=== PATIENT | female | born 1965 | race Caucasian/White ===

== ENCOUNTER 2016-07-26 15:01 | Observation (INO) | payer BC ==
[~2016-07-26] VITALS: Ht 162.6 cm; Wt 68.0 kg
[2016-07-26] VITALS (7 sets, daily range): BP systolic 97–143; BP diastolic 68–91; PULSE 66–106; RESP 16–17; TEMP 97.9–98.2; O2SAT 98–99
--- NOTE | 2016-07-26 15:28 | PD ---
HPI Chief Complaint: Chest Pain Time Seen by Provider: 15:25 Travel History International Travel<30 days: No Contact w/Intl Traveler<30days: No Traveled to known affect area: No History of Present Illness HPI 51-year-old female with PMH of hiatal hernia presents to the ED for evaluation of chest pain. Onset at 7 AM while the patient was out for a run. Patient describes a centralized tightness of her chest, states that it has not resolved over time. She denies radiation of the pain, palpitations, shortness of breath , nausea or vomiting. She states that she had a cardiac workup 5 or 6 years ago. She endorses [id number] smoking history, quit around 30 years ago. She endorses cardiac in her father at age 47, stroke history in her mother. Patient states that she has run several marathons but states that her 5 months ago and she has not been running regularly since. PFSH Past Medical History Hx Anticoagulant Therapy: Yes (81 ASPIRIN) Cardiovascular Problems: Yes (MURMUR) ?: Not LMP: 07/21/16 Social History Tobacco Use: Yes (quit age 26) Allergies-Medications (Allergen,Severity, Reaction): Coded Allergies: Morphine (Unverified Allergy, Mild, 07/26/16) "VIOLENT VOMITTING" Reported Meds & Prescriptions Reported Meds & Active Scripts Active Reported Lexapro (Escitalopram Oxalate) Unknown Strength Tab Unknown Dose PO DAILY Review of Systems Except as stated in HPI: all other systems reviewed are Neg Physical Exam Narrative GENERAL: Well-nourished, well-developed white female appearing younger than her stated age in no acute distress. SKIN: Focused skin assessment warm/dry. HEAD: Normocephalic. EYES: No scleral icterus. No injection or drainage. NECK: Supple, trachea midline. No JVD or lymphadenopathy. CARDIOVASCULAR: Regular rate and rhythm without murmurs, gallops, or rubs. 2+ DP and radial pulses bilaterally. RESPIRATORY: Breath sounds clear and equal bilaterally. No accessory muscle use. GASTROINTESTINAL: Abdomen soft, non-tender, nondistended. Active bowel sounds. MUSCULOSKELETAL: No cyanosis, or edema. Patient is ambulatory, moves extremities spontaneously. BACK: Nontender without obvious deformity. No CVA tenderness. Data Data Last Documented VS Vital Signs Date Time Temp Pulse Resp B/P Pulse Ox O2 Delivery O2 Flow Rate FiO2 07/26/16 15:38 98 16 98 Room Air 07/26/16 15:03 98.2 143/90 Orders Electrocardiogram (07/26/16 ) Electrocardiogram (07/26/16:23) Ckmb (Isoenzyme) Profile (07/26/16 15:23) Complete Blood Count With Diff (07/26/16:23) Comprehensive Metabolic Panel (07/26/16:) Magnesium (Mg) (07/26/16:) Prothrombin Time / Inr (Pt) (07/26/16:23) Act Partial Throm Time (Ptt) (07/26/16:23) Troponin I (07/26/16) Lipase (07/26/16:) Chest, Single Ap (07/26/16:) Ecg Monitoring (07/26/16:) Bilateral Bp Monitoring (07/26/16:) Iv Access Insert/Monitor (07/26/16:) Oximetry (07/26/16:) Aspirin Chew (Aspirin Chew) (07/26/16 15:30) Sodium Chloride 0.9% Flush (Ns Flush) (07/26/16 15:30) Sodium Chlor 0.9% 1000 Ml Inj (Ns 1000 M (07/26/16 15:30) Urinalysis - C+S If Indicated (07/26/16 16:32) Admit Order (Ed Use Only) (07/26/16 16:35) Labs Laboratory Tests Test 07/26/16 15:30 White Blood Count 13.0 TH/MM3 Red Blood Count 4.87 MIL/MM3 Hemoglobin 14.5 GM/DL Hematocrit 44.1 % Mean Corpuscular Volume 90.4 FL Mean Corpuscular Hemoglobin 29.9 PG Mean Corpuscular Hemoglobin 33.0 % Concent Red Cell Distribution Width 13.8 % Platelet Count 367 TH/MM3 Mean Platelet Volume 7.9 FL Neutrophils (%) (Auto) 78.5 % Lymphocytes (%) (Auto) 14.1 % Monocytes (%) (Auto) 6.5 % Eosinophils (%) (Auto) 0.4 % Basophils (%) (Auto) 0.5 % Neutrophils # (Auto) 10.2 TH/MM3 Lymphocytes # (Auto) 1.8 TH/MM3 Monocytes # (Auto) 0.8 TH/MM3 Eosinophils # (Auto) 0.1 TH/MM3 Basophils # (Auto) 0.1 TH/MM3 CBC Comment DIFF FINAL Differential Comment Prothrombin Time 10.5 SEC Prothromb Time International 1.0 RATIO Ratio Activated Partial 25.8 SEC Thromboplast Time Sodium Level 138 MEQ/L Potassium Level 3.5 MEQ/L Chloride Level 101 MEQ/L Carbon Dioxide Level 25.1 MEQ/L Anion Gap 12 MEQ/L Blood Urea Nitrogen 12 MG/DL Creatinine 0.97 MG/DL Estimat Glomerular Filtration 60 ML/MIN Rate Random Glucose 118 MG/DL Calcium Level 9.5 MG/DL Magnesium Level 2.1 MG/DL Total Bilirubin 0.7 MG/DL Aspartate Amino Transf 18 U/L (AST/SGOT) Alanine Aminotransferase 26 U/L (ALT/SGPT) Alkaline Phosphatase 72 U/L Total Creatine Kinase 65 U/L Troponin I LESS THAN 0.02 NG/ML Total Protein 7.2 GM/DL Albumin 3.9 GM/DL Lipase 287 U/L [facility] Medical Decision Making Medical Screen Exam Complete: Yes Emergency Medical Condition: Yes Differential Diagnosis Atypical chest pain versus angina versus ACS versus GERD versus cholecystitis versus anxiety versus other Narrative Course 51-year-old female with PMH of hiatal hernia presents to the ED for evaluation of chest pain. Onset at 7 AM while out for a run. Described as a centralized tightness of her chest, states that it has not resolved over time. Denies radiation, palpitations, SOB, N/V. Endorses cardiac workup 5 or 6 years ago,10- pack-year smoking history, quit around 30 years ago. She endorses cardiac in her father at age 47, stroke history in her mother. Patient states that she has run several marathons but states that her 5 months ago and she has not been running regularly since. Vitals reviewed. Patient is tachycardic on presentation but this resolves in the exam room. Physical exam reveals a nontoxic-appearing white female in no acute distress. RRR without appreciable M/R/G. Chest CTAB. Abdomen soft and nontender. Equal pulses in the extremities. No lower extremity edema. Patient was administered 325 mg ASA and 1 L NS bolus. CBC: WBC 13.0. Hemoglobin 14.5 CMP: Unremarkable Coags: INR 1.0 Lipase: 287 UA: Cardiac enzymes: Negative 1 EKG rate 93, sinus rhythm. IN interval 134, QRS 89, QTC 370. Normal axis. No ST changes. Reviewed by Dr. Ortega. CXR: No acute cardiopulmonary disease per radiology read. Unsure of the source of leukocytosis, patient states that she's been feeling well before today's symptoms. UA pending. I discussed the results of the workup with the patient. We'll admit to the [facility] for serial cardiac enzymes and EKGs, recommend following the leukocytosis as well. Please see chest pain center notes for disposition. Ailyn Worthy Jul 26, 2016 15:28
[2016-07-26] MEDS ORDERED: SODIUM CHLOR 0.9% 1000 ML INJ 1,000 ML IV ONE (15:30)
[2016-07-26] MEDS ORDERED: ASPIRIN 81 MG CHEW TAB PO ONE (15:30)
[2016-07-26] MEDS ORDERED: SODIUM CHLORIDE 0.9% FLUSH 10 ML FLUSH IVF PRN (15:30)
[2016-07-26] MEDS ORDERED: LEXA5TAB PO (15:41)
[2016-07-26 15:44] LABS: AUTOMATED NEUTROPHIL # 10.2 TH/MM3 (1.8-7.7); BASOPHIL # 0.1 TH/MM3 (0-0.2); BASOPHIL % 0.5 % (0.0-2.0); EOSINOPHIL # 0.1 TH/MM3 (0-0.4); EOSINOPHIL % 0.4 % (0.0-4.0); HEMATOCRIT 44.1 % (35.0-46.0); HEMO FLAGS DIFF FINAL; LYMPH % 14.1 % (9.0-44.0); LYMPHOCYTE # 1.8 TH/MM3 (1.0-4.8); MEAN CELL VOLUME 90.4 FL (80.0-100.0); MEAN CORPUSCULAR HEMOGLOBIN 29.9 PG (27.0-34.0); MONO % 6.5 % (0.0-8.0); NEUT % 78.5 % (16.0-70.0); PLATELET COUNT 367 TH/MM3 (150-450); RED BLOOD COUNT 4.87 MIL/MM3 (4.00-5.30); RED CELL DISTRIBUTION WIDTH 13.8 % (11.6-17.2)
--- NOTE | 2016-07-26 15:46 | RADRPT ---
EXAM DATE/TIME: 07/26/2016 15:39 [facility] COMPARISON: No previous studies available for comparison. INDICATIONS : Chest pain. MEDICAL HISTORY : Hypertension. Hiatal hernia. SURGICAL HISTORY : None. ENCOUNTER: Initial ACUITY: 1 day PAIN SCORE: 5/10 LOCATION: Bilateral chest FINDINGS: A single view of the chest demonstrates the lungs to be symmetrically aerated without evidence of mas s, infiltrate or effusion. The cardiomediastinal contours are unremarkable. Osseous structures are intact. CONCLUSION: No evidence of acute cardiopulmonary disease. Haroon Pope MD on July 26, 2016 at 15:44 Board Certified Radiologist. This report was verified electronically.
[2016-07-26 15:54] LABS: APTT (PATIENT) 25.8 SEC (24.3-30.1); PROTHROMBIN TIME - PATIENT 10.5 SEC (9.8-11.6)
[2016-07-26 16:08] LABS: ANION GAP 12 MEQ/L (5-15); AST (GOT) 18 U/L (15-37); BICARBONATE 25.1 MEQ/L (21.0-32.0); BLOOD UREA NITROGEN 12 MG/DL (7-18); CHLORIDE 101 MEQ/L (98-107); GLOMERULAR FILTRATION RATE 60 ML/MIN (>89); MAGNESIUM 2.1 MG/DL (1.5-2.5); POTASSIUM 3.5 MEQ/L (3.5-5.1); SODIUM (NA) 138 MEQ/L (136-145)
[2016-07-26 16:13] LABS: ALKALINE PHOSPHATASE 72 U/L (45-117); ALT (GPT) 26 U/L (10-53); TOTAL BILIRUBIN ADULT 0.7 MG/DL (0.2-1.0)
[2016-07-26 16:28] LABS: CREATINE KINASE 65 U/L (26-192)
[2016-07-26] MEDS ORDERED: ASPI81CH CHEW (17:05)
[2016-07-26] MEDS ORDERED: LISI10TA PO (17:05)
[2016-07-26] MEDS ORDERED: SODIUM CHLOR 0.9% 1000 ML INJ 1,000 ML IV SCH (17:06)
--- NOTE | 2016-07-26 17:06 | HHI.HP ---
[facility] Primary Care Physician Lisa Coombs MD Chief Complaint Chest pain History of Present Illness This is a 51-year-old female that presents to ED via private vehicle with a complaint of developing a chest discomfort this morning. She states that she is beginning to start the jaw began to prepare for a marathon in [place]. She had ran about 2 miles when she developed goosebumps. She is states that she recalls in the past when she was jogging that when she had goosebumps adamant that she was dehydrated. She then stopped and sat down. About that time she developed a discomfort in the center of her chest. She describes them as "little pains." It will last for couple seconds but with reoccur. It did finally stop reoccurring and she decided to try running a little more. She ran/ walked an additional mile and her friend and picked her up in the car. She went home and was feeling better. And a little later she started having the same "little pains." They also last a few seconds. Should no associated shortness red nausea or diaphoresis. Patient has history of hypertension and was recently placed on lisinopril/HCTZ. She also was told that her cholesterol levels little bit elevated but her doctors going to try diet control. Has had stomach ulcers about 7 years ago and believes she's been having heartburn more over the last couple months. Tums do seem to help with that. Denies recent illness. Denies fevers or chills. Cannot recall ever having a stress test but states she had a 2-D echo and EKG and that it looked okay other than having a murmur. Review of Systems General: Patient denies fevers, chills recent, and recent travel HEENT: Patient denies headache, sore throat, difficulty swallowing. Cardiovascular: Has the chest discomfort as mentioned above. Denies sensation of heart beating rapidly or irregularly. No syncope. Denies diaphoresis. Respiratory: Denies shortness of breath or inspirational chest discomfort. Denies coughing wheezing or hemoptysis. GI: Patient denies nausea, vomiting, diarrhea, abdominal pain, bloody stools. Musculoskeletal: Patient denies joint pain or edema. Denies calf pain or edema. Neurovascular: Patient denies numbness, tingling, weakness in extremities. Denies headache. Endocrine: Denies polyuria and polydipsia. Hematologic: Denies easy bruising. Skin: Denies rash or itching. Past Family Social History Allergies: Coded Allergies: Morphine (Unverified Allergy, Mild, 07/26/16) "VIOLENT VOMITTING" Past Medical History Hypertension, hyperlipidemia, stomach ulcers, hiatal hernia, past history tobacco abuse quitting 25 years ago. GERD. Depression. Denies diabetes and known CAD. Past Surgical History Appendectomy, ganglion cyst removal, endometrial ablation, and breast reduction. Reported Medications Reported Meds & Active Scripts Active Reported Lexapro (Escitalopram Oxalate) Unknown Strength Tab Unknown Dose PO DAILY Active Ordered Medications Current Medications Medications (Trade) Dose Ordered Sig/Desirae Route Start Time Stop Time Status Last Admin (NS Flush) 2 ml UNSCH PRN IVF 07/26/16 15:30 07/26/16 15:35 Family History She states that her father of a myocardial infarction at age 47. Social History Patient quit smoking 25 years ago but prior that she smoked one pack of cigarettes daily for 10 years. She has on average 2 glasses of wine 3-4 times a week. Denies illicit drugs. She is a business owner consulting engineer. Her recently . Physical Exam Vital Signs Vital Signs Date Time Temp Pulse Resp B/P Pulse Ox O2 Delivery O2 Flow Rate FiO2 07/26/16 15:38 98 16 98 Room Air 07/26/16 15:20 92 16 98 Room Air 07/26/16 15:03 98.2 106 16 143/90 99 Physical Exam GENERAL: This is a well-nourished, well-developed patient, in no apparent distress. Patient speaks in clear complete sentences. Patient is pleasant. HEENT: Head is atraumatic and normocephalic. Neck is supple without lymphadenopathy and trachea is midline. No JVD or carotid bruits. CARDIOVASCULAR: Grade 1 systolic murmur left sternal border. Regular rate and rhythm without gallops, or rubs. RESPIRATORY: Clear to auscultation. Breath sounds equal bilaterally. No wheezes , rales, or rhonchi. Chest wall is nontender. No use of accessory muscles. GASTROINTESTINAL: Abdomen is nontender, nondistended. Abdomen soft. No obvious pulsatile mass or bruit. No CVA tenderness. Strong femoral pulses bilaterally. Normal bowel sounds in all quadrants. MUSCULOSKELETAL: Patient is moving upper and lower extremities freely. No calf tenderness or edema, no Homans sign. Strong pulses in upper and lower extremities. NEUROLOGICAL: Patient is alert and oriented. Cranial nerves 2-12 are grossly intact. No focal deficits and speech is clear. SKIN: No rash and turgor is normal. Laboratory Laboratory Tests Test 07/26/16 15:30 White Blood Count 13.0 Red Blood Count 4.87 Hemoglobin 14.5 Hematocrit 44.1 Mean Corpuscular Volume 90.4 Mean Corpuscular Hemoglobin 29.9 Mean Corpuscular Hemoglobin 33.0 Concent Red Cell Distribution Width 13.8 Platelet Count 367 Mean Platelet Volume 7.9 Neutrophils (%) (Auto) 78.5 Lymphocytes (%) (Auto) 14.1 Monocytes (%) (Auto) 6.5 Eosinophils (%) (Auto) 0.4 Basophils (%) (Auto) 0.5 Neutrophils # (Auto) 10.2 Lymphocytes # (Auto) 1.8 Monocytes # (Auto) 0.8 Eosinophils # (Auto) 0.1 Basophils # (Auto) 0.1 CBC Comment DIFF FINAL Differential Comment Prothrombin Time 10.5 Prothromb Time International 1.0 Ratio Activated Partial 25.8 Thromboplast Time Sodium Level 138 Potassium Level 3.5 Chloride Level 101 Carbon Dioxide Level 25.1 Anion Gap 12 Blood Urea Nitrogen 12 Creatinine 0.97 Estimat Glomerular Filtration 60 Rate Random Glucose 118 Calcium Level 9.5 Magnesium Level 2.1 Total Bilirubin 0.7 Aspartate Amino Transf 18 (AST/SGOT) Alanine Aminotransferase 26 (ALT/SGPT) Alkaline Phosphatase 72 Total Creatine Kinase 65 Troponin I LESS THAN 0.02 Total Protein 7.2 Albumin 3.9 Lipase 287 Result Diagram: 07/26/16 1530 07/26/16 1530 Imaging Last 48 hours Impressions Chest X-Ray 07/26/16 1523 Signed Impressions: Service Date/Time: Tuesday, July 26, 2016 15:39 - CONCLUSION: No evidence of acute cardiopulmonary disease. Haroon Pope MD Course Initial EKG is sinus rhythm rate [address] segment depressions or elevations. Assessment and Plan Assessment and Plan * Atypical chest pain: Patient's discomfort is somewhat atypical. She will continue to have serial cardiac enzymes and EKGs for ruling out purposes. He was jogging for a while today. We will give IV hydration. She will be seen by Dr. Sheehan in the chest pain center. She will spend the evening in the chest pain center and if she rules out while the stress test in the morning. She'll be discharged home if her stress test is nonischemic. * Hypertension: Continue current medication. Have Catapres when necessary. * Hyperlipidemia: Patient states that they are attempting diet control. She should follow this with her primary care physician. * Depression: Continue current medication. * GERD: Will start Protonix. Patient is stable at this time. She is agreeable to this plan. Josiah Lassiter Jul 26, 2016 17:06
[2016-07-26] MEDS ORDERED: cloNIDine HCL 0.1 MG TAB PO PRN (17:15)
[2016-07-26] MEDS ORDERED: SODIUM CHLORIDE 0.9% FLUSH 5 ML FLUSH IVF PRN (17:15)
[2016-07-26] MEDS ORDERED: ONDANSETRON HCL 4 MG/2 ML VIAL IV PRN (17:15)
[2016-07-26] MEDS ORDERED: ALPRAZolam 0.25 MG TAB PO PRN (17:15)
[2016-07-26] MEDS ORDERED: ACETAMINOPHEN 500 MG CPLT PO PRN (17:15)
[2016-07-26] MEDS: PANTOPRAZOLE SOD 40 MG DELAYED RELEASE TAB PO SCH (18:28)
[2016-07-26 19:15] LABS: CREATINE KINASE 59 U/L (26-192)
[2016-07-26] MEDS: SODIUM CHLORIDE 0.9% FLUSH 5 ML FLUSH IVF SCH (20:31)
--- NOTE | 2016-07-26 21:07 | EKG ---
Date Performed: 07/26/2016 Time Performed: 15:25:13 PTAGE: 51 years EKG: Sinus rhythm NORMAL ECG NO PREVIOUS TRACING DOCTOR: Sidney Sheehan Interpretating Date/Time 07/26/2016 21:05:41
--- NOTE | 2016-07-26 21:07 | EKG ---
Date Performed: 07/26/2016 Time Performed: 19:56:40 PTAGE: 51 years EKG: Sinus rhythm NORMAL ECG PREVIOUS TRACING : 07/26/2016 15.25 DOCTOR: Sidney Sheehan Interpretating Date/Time 07/26/2016 21:06:45
[2016-07-26 22:13] LABS: BACTERIA, URINE RARE /hpf; BLOOD, URINE NEG (NEG); COMMENT (UR) CULT NOT INDICATED; CULTURE IF INDICATED CULT NOT INDICATED; GLUCOSE,URINE NEG (NEG); KETONE, URINE 10 mg/dL (NEG); MUCUS URINE FEW /lpf (OCC); NITRITE,URINE NEG (NEG); SQUAMOUS EPITHELIAL CELL URINE 1 /hpf (0-5); URINE COLOR LIGHT-YELLOW (YELLW/STRAW)
[2016-07-26 22:41] LABS: CREATINE KINASE 55 U/L (26-192)
[2016-07-27 03:29] VITALS: BP 111/66; PULSE 63; RESP 17; TEMP 97.9; O2SAT 99
[2016-07-27 03:42] VITALS: PULSE 59
[2016-07-27 07:28] VITALS: O2SAT 99
[2016-07-27] MEDS: PANTOPRAZOLE SOD 40 MG DELAYED RELEASE TAB PO SCH (07:52)
[2016-07-27] MEDS: SODIUM CHLORIDE 0.9% FLUSH 5 ML FLUSH IVF SCH (07:55)
[2016-07-27 07:59] LABS: AUTOMATED NEUTROPHIL # 8.1 TH/MM3 (1.8-7.7); BASOPHIL # 0.1 TH/MM3 (0-0.2); BASOPHIL % 0.5 % (0.0-2.0); EOSINOPHIL # 0.1 TH/MM3 (0-0.4); EOSINOPHIL % 0.9 % (0.0-4.0); HEMATOCRIT 39.9 % (35.0-46.0); HEMO FLAGS DIFF FINAL; LYMPH % 19.7 % (9.0-44.0); LYMPHOCYTE # 2.2 TH/MM3 (1.0-4.8); MEAN CELL VOLUME 90.4 FL (80.0-100.0); MEAN CORPUSCULAR HEMOGLOBIN 29.9 PG (27.0-34.0); MONO % 5.5 % (0.0-8.0); NEUT % 73.4 % (16.0-70.0); PLATELET COUNT 331 TH/MM3 (150-450); RED BLOOD COUNT 4.42 MIL/MM3 (4.00-5.30); WHITE BLOOD COUNT 11.1 TH/MM3 (4.0-11.0)
[2016-07-27 08:08] VITALS: BP 120/68; PULSE 62; RESP 18; TEMP 97.9; O2SAT 96
[2016-07-27 08:15] VITALS: PULSE 59
[2016-07-27] MEDS ORDERED: HYDROCHLOROTHIAZIDE 25 MG TAB PO SCH (09:00)
[2016-07-27] MEDS ORDERED: NON-FORMULARY DRUG (Lisinopril-Hctz 1 TAB) PO SCH (09:00)
[2016-07-27] MEDS ORDERED: LISINOPRIL 10 MG TAB PO SCH (09:00)
[2016-07-27] MEDS ORDERED: ASPIRIN 325 MG TAB PO SCH (09:00)
--- NOTE | 2016-07-27 12:21 | EKG ---
Date Performed: 07/26/2016 Time Performed: 21:41:01 PTAGE: 51 years EKG: SINUS BRADYCARDIA BORDERLINE ECG PREVIOUS TRACING : 07/26/2016 19.56 DOCTOR: Sidney Sheehan Interpretating Date/Time 07/27/2016 12:20:24
[2016-07-27 12:38] VITALS: BP 120/60; PULSE 68; RESP 18; TEMP 97.8; O2SAT 96
--- NOTE | 2016-07-27 12:49 | TR ---
Date Performed: 07/27/2016 Time Performed: 09:13:01 DOCTOR: Sidney Sheehan DRUG LIST: CLINICAL HISTORY: REASON FOR TEST: Chest pain REASON FOR ENDING: OBSERVATION: CONCLUSION: VILLA [id number]. NO CP OR SOB. HYPERTENSIVE RESPONSE TO EXERCISE. FAIR EXERCISE DONTE ANCE. AT PEAK EXERCISE MOSTLY UPSLOPING ST-DEPRESSION LEADS II, III, AVF & V6. RECOVERY WAS QUICK AND UNEVENTFUL, BLOOD PRESSURE RETURNED TO NORMAL. Maximum IX=597 % Max HR Achieved=99.0% Total Exercise Time=6:45 COMMENTS: CONCLUSION: Exercise treadmill is borderline posative for ischemic changes. Nuclear ex ercise stress test will be obtained.
--- NOTE | 2016-07-27 13:03 | TR ---
Date Performed: 07/27/2016 Time Performed: 11:21:39 DOCTOR: Sidney Sheehan DRUG LIST: CLINICAL HISTORY: REASON FOR TEST: Chest pain REASON FOR ENDING: OBSERVATION: CONCLUSION: NUCLEAR ETT. NO CP OR SOB. NORMAL BLOOD PRESSURE RESPONSE TO EXERCISE. FAIR EXERCISE TOLERANCE. AT PEAK EXERCISE MOSTLY UPSLOPING ST-DEPRESSION LEADS II, III, AVF & V6. RECOVERY WAS MINDY CK AND UNEVENTFUL. RADIONUCLIDE WAS INJECTED. Maximum EJ=444 % Max HR Achieved=93.0% Maximum LX=994/8 0 Total Exercise Time=5:08 COMMENTS: CONCLUSION: ECG portion nuclear exercise stress test is borderline posative for ischem ic changes. Nuclear imaging and interpretation are pending.
--- NOTE | 2016-07-27 13:05 | RADRPT ---
EXAM DATE/TIME: 07/27/2016 10:42 [facility] COMPARISON: No previous studies available for comparison. INDICATIONS : Substernal chest pain. Angina DOSE: 26.9 mCi Tc99m Myoview at stress 8.8 mCi Tc99m Myoview at rest REST HEART RATE: 84 BPM TARGET HEART RATE: 142 BPM MAX HEART RATE: 155 BPM REST BLOOD PRESSURE: 112/80 mmHg MAX BLOOD PRESSURE: 112/80 mmHg EJECTION FRACTION: > 70% MEDICAL HISTORY : Hernia, hiatal. Hypertension. SURGICAL HISTORY : Breast reduction. ENCOUNTER: Initial ACUITY: 1 day PAIN SCALE: 3/10 LOCATION: Substernal chest TECHNIQUE: The patient underwent upright treadmill exercise in the chest pain center. Continuous ECG tracing wa s monitored during stress. Gated SPECT imaging was performed after stress, and conventional SPECT im aging was performed at rest. The examination was performed on a SPECT/CT scanner, both attenuation-c orrected and non-corrected datasets were reviewed. FINDINGS: DISTRIBUTION: The maximum perfused segment at stress is in the lateral wall. PERFUSION STUDY: Small fixed perfusion deficit seen of the apex. No reversible perfusion deficits. GATED STUDY: Very focal area of decreased motion seen of the cardiac apex. Robust wall motion/thickening otherwise . Overall left ventricular ejection fraction is normal. 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 No stress-induced ischemia or other acute abnormality de monstrated. RISK CATEGORY: Low to intermediate. Haroon Pope MD on July 27, 2016 at 13:00 Board Certified Radiologist. This report was verified electronically.
[2016-07-27] MEDS ORDERED: PROT40TA PO (13:24)
[2016-07-27] MEDS ORDERED: LISI10TA3 PO (13:24)
--- NOTE | 2016-07-27 13:25 | HHI.DCPOC ---
Discharge Care Plan Diagnosis: (1) Chest pain (2) Hypertension Goals to Promote Your Health * To prevent worsening of your condition and complications * To maintain your health at the optimal level Directions to Meet Your Goals Take your medications as prescribed Follow your dietary instruction Follow activity as directed Keep your appointments as scheduled Take your immunizations and boosters as scheduled If your symptoms worsen call your PCP, if no PCP go to Urgent Care Center or Emergency Room Smoking is Dangerous to Your Health. Avoid second hand smoke Call the 24-hour hour crisis hotline for domestic abuse at Josiah Lassiter Jul 27, 2016 13:25
== END 2016-07-27 14:10 | disposition home or self-care (01) ==
LOC: NEPE 15:01 → NEDA 16:37 → NEPGCP 18:43
PROVIDERS: ADMIT Family Medicine; ATTEND Family Medicine
DX: R07.89 Other chest pain (principal); I10 Essential (primary) hypertension; D72.829 Elevated white blood cell count, unspecified; K21.9 Gastro-esophageal reflux disease without esophagitis; E78.5 Hyperlipidemia, unspecified; F32.9 Major depressive disorder, single episode, unspecified; Z87.891 Personal history of nicotine dependence; Z88.5 Allergy status to narcotic agent; Z82.49 Family history of ischemic heart disease and other diseases of the circulatory system; Z87.11 Personal history of peptic ulcer disease
CPT/HCPCS: 71010; 78452; 80053; 81001; 82550; 83690; 83735; 84484; 85025; 85610; 85730; 93005; 93017; 96360; 96361; 99285; A9502; G0378; J7030